=== PATIENT | female | born 1980 | race Caucasian/White ===

== ENCOUNTER 2025-01-28 13:38 | Outpatient (RCR) | payer OTHER, SELFPAY ==
[2025-01-28] MEDS: VENOFER 110 MG IV (14:01)
[2025-01-28 14:07] VITALS: BP 108/79
[2025-01-28 15:30] VITALS: BP 102/60
== END 2025-01-29 09:13 | disposition home or self-care (01) ==
LOC: OID 13:38
PROVIDERS: ATTENDING PHYSICIAN Nurse Practitioner
DX: D50.9 Iron deficiency anemia, unspecified (principal); E53.9 Vitamin B deficiency, unspecified; E53.8 Deficiency of other specified B group vitamins; D56.9 Thalassemia, unspecified; D55.9 Anemia due to enzyme disorder, unspecified
CPT/HCPCS: 96365; J1756

== ENCOUNTER 2025-02-25 11:32 | Outpatient (RCR) | payer OTHER, SELFPAY ==
[2025-02-04 10:58] VITALS: BP 105/82
[2025-02-04] MEDS: VENOFER 110 MG IV (11:02)
[2025-02-04] MEDS: NSS 500 IV (11:26)
[2025-02-04 12:50] VITALS: BP 126/65
[2025-02-11] MEDS: NSS 500 IV (14:43)
[2025-02-11] MEDS: VENOFER 110 MG IV (14:44)
[2025-02-11 14:48] VITALS: BP 102/57
[2025-02-18 13:53] VITALS: BP 118/64
[2025-02-18] MEDS: VENOFER 110 MG IV (14:04)
[2025-02-18] MEDS: NSS 500 IV (14:04)
[2025-02-25] MEDS: NSS 500 IV (11:48)
[2025-02-25] MEDS: VENOFER 110 MG IV (11:49)
[2025-02-25 11:52] VITALS: BP 104/59
[2025-02-25 12:55] VITALS: BP 101/62
== END 2025-02-26 10:15 | disposition home or self-care (01) ==
LOC: OID 11:32
PROVIDERS: ATTENDING PHYSICIAN Nurse Practitioner
DX: D50.9 Iron deficiency anemia, unspecified (principal); R53.82 Chronic fatigue, unspecified; E53.9 Vitamin B deficiency, unspecified; E53.8 Deficiency of other specified B group vitamins; D56.9 Thalassemia, unspecified; M35.00 Sjogren syndrome, unspecified; E55.9 Vitamin D deficiency, unspecified
CPT/HCPCS: 96361; 96365; J1756